=== PATIENT | female | born 1990 | race Asian ===

== ENCOUNTER 2016-11-20 10:04 | Emergency (ER) | payer OTHER ==
[~2016-11-20] VITALS: Ht 160 cm; Wt 58.1 kg
[~2016-11-20 10:04] MED LIST: PREN-29 PO
[2016-11-20 10:26] VITALS: Ht 160 cm; Wt 58.1 kg
[2016-11-20] MEDS ORDERED: AMO500 PO (11:37)
[2016-11-20] MEDS ORDERED: MED4DP PO (11:37)
[2016-11-20] MEDS ORDERED: LORA5TAB4 PO (11:38)
--- NOTE | 2016-11-20 11:42 | ERD ---
ER Documentation Chief Complaint Date/Time DATE: 11/20/16 TIME: 11:40 Chief Complaint RT EAR PAIN, SORE THROAT, MAILAISE X2 DAYS. HPI Patient is a 26-year-old female with no significant medical history presenting to the emergency department for worsening right ear pain and sore throat and losing her voice for the past 2 days. Additionally the patient reports sick contacts. The patient denies nausea, vomiting, diarrhea, fevers, or other symptoms at this time. ROS All systems reviewed and are negative except as per history of present illness. Medications Home Meds Active Scripts Loratadine* (Claritin*) 5 Mg Tab.rapdis, 5 MG PO DAILY, #30 TAB Prov:EMILY ZAMORA PA-C 11/20/16 Methylprednisolone* (Medrol* DOSE PACK) 4 Mg/Dose-Pack Tab.ds.pk, 4 MG PO . DIRECTED, #1 PACKET Prov:EMILY ZAMORA PA-C 11/20/16 Amoxicillin* (Amoxicillin*) 500 Mg Cap, 500 MG PO BID for 10 Days, #20 CAP Prov:EMILY ZAMORA PA-C 11/20/16 Reported Medications Vit-Fe Fumarate-FA* (Jermaine Tablet*) 1 Tab Tablet, 1 TAB PO AM , TAB 11/24/14 Allergies Allergies: Coded Allergies: No Known Drug Allergies (Unverified Allergy, Unknown, 11/24/14) PMhx/Soc Medical and Surgical Hx: pt denies Medical Hx, pt denies Surgical Hx Hx Alcohol Use: No Hx Substance Use: No Hx Tobacco Use: No Smoking Status: Never smoker FmHx Noncontributory for chief complaint Physical Exam Vitals Vital Signs Date Time Temp Pulse Resp B/P Pulse Ox O2 Delivery O2 Flow Rate FiO2 11/20/16 10:26 96.9 84 16 113/76 99 Physical Exam INITIAL VITAL SIGNS: Reviewed by me. GENERAL: Alert and interactive. No acute distress. HEAD: Head is normocephalic and atraumatic. EYES: EOMI. No scleral icterus. No conjunctival injection. ENT: The right tympanic membrane is erythematous but nonbulging. The left tympanic membrane is normal in appearance. The external auditory canals are nonerythematous with no obstruction bilaterally. There is no mastoid tenderness bilaterally. NECK: Supple. Full range of motion. RESPIRATORY: Normal respiratory effort. Clear breath sounds bilaterally. No wheezing, rales, or rhonchi. CV: Regular rate and rhythm. Normal S1 S2. No S3 or S4. No murmurs. ABDOMEN: Soft, non-distended, non-tender. No guarding. No rebound. No masses. EXTREMITIES: No deformity. SKIN: Warm and dry. NEUROLOGIC: Alert and oriented x 4. Speech is normal. Moves all extremities equally. No motor or sensory deficits noted. Procedures/MDM 26-year-old female presents secondary to complaints of right ear pain and sore throat and losing her voice. On physical examination the patient's vitals are within normal limits. Examination of the right tympanic membrane is erythematous which is concerning for otitis media. I have low suspicion for mastoiditis, retropharyngeal abscess, peritonsillar abscess, or other emergent conditions at this time. The patient will be given prescriptions for amoxicillin, Medrol Dosepak, and Claritin. The patient is stable for outpatient management. The patient agrees with the diagnosis and discharge plan. The patient was advised to return to the department immediately with any new or worsening symptoms. The patient demonstrates understanding of this information. All questions and concerns were addressed and the patient was hemodynamically stable prior to discharge. Departure Diagnosis: Primary Impression: Otitis media Otitis media type: other nonsuppurative Laterality: right Chronicity: acute Recurrence: not specified as recurrent Qualified Code: H65.191 - Other acute nonsuppurative otitis media of right ear, recurrence not specified Condition: Fair Patient Instructions: Otitis Media, Abx Tx (Adult) Referrals: [facility] YOU HAVE RECEIVED A MEDICAL SCREENING EXAM AND THE RESULTS INDICATE THAT YOU DO NOT HAVE A CONDITION THAT REQUIRES URGENT TREATMENT IN THE EMERGENCY DEPARTMENT. FURTHER EVALUATION AND TREATMENT OF YOUR CONDITION CAN WAIT UNTIL YOU ARE SEEN IN YOUR DOCTORS OFFICE WITHIN THE NEXT 1-2 DAYS. IT IS YOUR RESPONSIBILITY TO MAKE AN APPOINTMENT FOR FOLOW-UP CARE. IF YOU HAVE A PRIMARY DOCTOR --you should call your primary doctor and schedule an appointment IF YOU DO NOT HAVE A PRIMARY DOCTOR YOU CAN CALL OUR PHYSICIAN REFERRAL HOTLINE AT IF YOU CAN NOT AFFORD TO SEE A PHYSICIAN YOU CAN CHOSE FROM THE FOLLOWING [facility] [id number] [facility]. [facility] [address] [facility] [address] [facility] [address] [facility] [address] [facility] [address] [facility]. [facility] [address] Additional Instructions: Follow-up with your primary care physician within 1 week. Return to the emergency department immediately should you have any new or worsening symptoms, uncontrolled fevers, or other unexplained symptoms. Take all medications as directed. EMILY ZAMORA PA-C Nov 20, 2016 11:42
== END 2016-11-20 11:40 | disposition home or self-care (01) ==
LOC: FTE 10:04
DX: H65.191 Other acute nonsuppurative otitis media, right ear (principal)
CPT/HCPCS: 99284

== ENCOUNTER 2016-11-22 05:24 | Emergency (ER) | payer OTHER ==
[~2016-11-22] VITALS: Ht 154.9 cm; Wt 57.5 kg
[~2016-11-22 05:24] MED LIST changes: +AMO500 PO; +LORA5TAB4 PO; +MED4DP PO
[2016-11-22 05:38] VITALS: Ht 154.9 cm; Wt 57.5 kg
[2016-11-22] MEDS ORDERED: OFLO5DRO7 RIGHT EAR (06:17)
[2016-11-22] MEDS ORDERED: ACET500C5 PO (06:18)
--- NOTE | 2016-11-22 06:36 | ERD ---
ER Documentation Chief Complaint Date/Time DATE: 11/22/16 TIME: 06:33 Chief Complaint pt dx with r ear infection and tonight noticed drainage from r ear HPI Patient is a 26-year-old female who presents to the ED with right ear pain. She states that she was here yesterday and was treated for an ear infection. She has taken her amoxicillin however she states that she now has pain on the outside of her ear. She also noticed some drainage from her right ear. She denies hearing a pop. Denies difficulty hearing. Denies headache or dizziness. Denies fever or chills. Denies abdominal pain, nausea, vomiting or diarrhea. Denies blurry vision. No other complaints. ROS All systems reviewed and are negative except as per history of present illness. Medications Home Meds Active Scripts Acetaminophen* (Tylophen*) 500 Mg Capsule, 1 CAP PO Q6H Y for PAIN AND OR ELEVATED TEMP, #20 CAP Prov:CARLOS ROMAN PA-C 11/22/16 Ofloxacin Otic (Ofloxacin Otic) 5 Ml Drops, 5 DROP RIGHT EAR BID for 10 Days, # 1 BOTTLE Prov:CARLOS ROMAN PA-C 11/22/16 Loratadine* (Claritin*) 5 Mg Tab.rapdis, 5 MG PO DAILY, #30 TAB Prov:EMILY ZAMORA PA-C 11/20/16 Methylprednisolone* (Medrol* DOSE PACK) 4 Mg/Dose-Pack Tab.ds.pk, 4 MG PO . DIRECTED, #1 PACKET Prov:EMILY ZAMORA PA-C 11/20/16 Amoxicillin* (Amoxicillin*) 500 Mg Cap, 500 MG PO BID for 10 Days, #20 CAP Prov:EMILY ZAMORA PA-C 11/20/16 Reported Medications Vit-Fe Fumarate-FA* (Jermaine Tablet*) 1 Tab Tablet, 1 TAB PO AM , TAB 11/24/14 Allergies Allergies: Coded Allergies: No Known Drug Allergies (Unverified Allergy, Unknown, 11/24/14) PMhx/Soc History of Surgery: No Anesthesia Reaction: No Hx Neurological Disorder: No Hx Respiratory Disorders: No Hx Cardiac Disorders: No Hx Psychiatric Problems: No Hx Miscellaneous Medical Probl: No Hx Alcohol Use: No Hx Substance Use: No Hx Tobacco Use: No Physical Exam Vitals Vital Signs Date Time Temp Pulse Resp B/P Pulse Ox O2 Delivery O2 Flow Rate FiO2 11/22/16 05:38 97.6 88 20 115/76 100 Physical Exam GENERAL: Well-developed, well-nourished female. Appears in no acute distress. HEAD: Normocephalic, atraumatic. EYES: Pupils are equally reactive bilaterally. EOMs grossly intact. No conjunctival erythema. ENT: Moist mucous membranes. No uvula deviation. No kissing tonsils. No exudates. Right TM is erythematous. No mastoid tenderness. No blood or drainage seen on examination. Tenderness to pinna and tragus of right ear. Left ear is clear. NECK: Supple. No lymphadenopathy or thyromegaly. No meningismus. negative kernig. negative brudinski. LUNG: Clear to auscultation bilaterally. No rhonchi, wheezing, rales or coarse breath sounds. HEART: Regular rate and rhythm. No murmurs, rubs or gallops. SKIN: Normal color. Warm and dry. No rashes or lesions. Capillary refill < 2 seconds Procedures/MDM ER COURSE: I kept the patient and/or family informed of laboratory and diagnostic imaging results throughout the emergency room course. MEDICAL DECISION MAKING: This is a 26-year-old female who presents with right ear pain. Vital signs were reviewed. Patient is afebrile. Patient is not hypoxic. Patient is not toxic or ill-appearing. Patient has otitis externa of the right ear. In addition to acute otitis media of her right ear. Low suspicion for malignant otitis externa , TM perforation, mastoiditis. There are no signs of TM perforation. I will be prescribing her Corticosporin otic drops in addition for her to continue the amoxicillin as prescribed. DISCHARGE: At this time, patient is stable for discharge and outpatient management with no new complaints during the ER course. Patient was sent home with Corticosporin otic, Tylenol for pain.. Patient will be discharged home with instructions to recheck for new or worsening symptoms such as fever, nausea, weakness, LOC and to follow up with primary care in the next 1-2 days. Patient was advised to return to the ER for any new or worsening symptoms. Plan was discussed and patient and/or family understands and agrees. Home instructions were given. Departure Diagnosis: Primary Impression: Otitis externa Otitis externa type: unspecified type Laterality: right Chronicity: unspecified Qualified Code: H60.91 - Otitis externa of right ear, unspecified chronicity, unspecified type Additional Impression: Acute otitis media Otitis media type: unspecified Laterality: unspecified laterality Qualified Code: H66.90 - Acute otitis media, unspecified laterality, unspecified otitis media type Condition: Stable Patient Instructions: External Ear Infection (Adult) Additional Instructions: Call your primary care doctor TOMORROW for an appointment during the next 1-2 days.See the doctor sooner or return here if your condition worsens before your appointment time. CARLOS ROMAN PA-C Nov 22, 2016 06:36
== END 2016-11-22 06:50 | disposition home or self-care (01) ==
LOC: FTE 05:24
DX: H60.91 Unspecified otitis externa, right ear (principal); H66.91 Otitis media, unspecified, right ear; H92.01 Otalgia, right ear
CPT/HCPCS: 99283

== ENCOUNTER 2016-11-24 11:43 | Emergency (ER) | payer OTHER ==
[~2016-11-24] VITALS: Wt 60.0 kg
[~2016-11-24 11:43] MED LIST changes: +ACET500C5 PO; +OFLO5DRO7 RIGHT EAR
[2016-11-24] MEDS ORDERED: BACTDS PO (13:53)
[2016-11-24] MEDS ORDERED: IBUP-1542 PO (13:53)
--- NOTE | 2016-11-24 13:57 | ERD ---
ER Documentation Chief Complaint Date/Time DATE: 11/24/16 TIME: 13:55 Chief Complaint right ear pain for 1 week not better with abx HPI This 26-year-old female presents with right ear pain for last week. She was seen twice the first and prescribed amoxicillin the second time of Floxin drops. She complains of persistent pain and sensitivity to loud noises. She has some pain with movement of the external ear as well. She denies cough, fever congestion, bleeding or discharge ROS All systems reviewed and are negative except as per history of present illness. Medications Home Meds Active Scripts Ibuprofen* (Motrin*) 600 Mg Tab, 600 MG PO Q6, #15 TAB Prov:MARIA ESTHER ROSARIO MD 11/24/16 Sulfamethoxazole-Trimethoprim* (Bactrim* DS) 800-160 Mg Tab, 1 TAB PO BID for 7 Days, TAB Prov:MARIA ESTHER ROSARIO MD 11/24/16 Acetaminophen* (Tylophen*) 500 Mg Capsule, 1 CAP PO Q6H Y for PAIN AND OR ELEVATED TEMP, #20 CAP Prov:CARLOS ROMAN PA-C 11/22/16 Ofloxacin Otic (Ofloxacin Otic) 5 Ml Drops, 5 DROP RIGHT EAR BID for 10 Days, # 1 BOTTLE Prov:CARLOS ROMAN PA-C 11/22/16 Loratadine* (Claritin*) 5 Mg Tab.rapdis, 5 MG PO DAILY, #30 TAB Prov:EMILY ZAMORA PA-C 11/20/16 Methylprednisolone* (Medrol* DOSE PACK) 4 Mg/Dose-Pack Tab.ds.pk, 4 MG PO . DIRECTED, #1 PACKET Prov:EMILY ZAMORA PA-C 11/20/16 Amoxicillin* (Amoxicillin*) 500 Mg Cap, 500 MG PO BID for 10 Days, #20 CAP Prov:EMILY ZAMORA PA-C 11/20/16 Reported Medications Vit-Fe Fumarate-FA* (Jermaine Tablet*) 1 Tab Tablet, 1 TAB PO AM , TAB 11/24/14 Allergies Allergies: Coded Allergies: No Known Drug Allergies (Unverified Allergy, Unknown, 11/24/14) PMhx/Soc History of Surgery: No Anesthesia Reaction: No Hx Neurological Disorder: No Hx Respiratory Disorders: No Hx Cardiac Disorders: No Hx Psychiatric Problems: No Hx Miscellaneous Medical Probl: No Hx Alcohol Use: No Hx Substance Use: No Hx Tobacco Use: No Physical Exam Vitals Vital Signs Date Time Temp Pulse Resp B/P Pulse Ox O2 Delivery O2 Flow Rate FiO2 11/24/16 11:45 97.3 81 20 115/60 98 Physical Exam Const: [] Alert, not ill-appearing Head: Atraumatic Eyes: Normal Conjunctiva ENT: Normal External Ears, Nose and Mouth. Appears to be a small dried pustule superior aspect of the right external auditory canal. TM shows slight decrease light reflex but without significant redness. There is no mastoid tenderness or external or facial erythema or induration. Neck: Full range of motion..~ No meningismus. Resp: Clear to auscultation bilaterally Cardio: Regular rate and rhythm, no murmurs Abd: Soft, non tender, non distended. Normal bowel sounds Skin: No petechiae or rashes Back: No midline or flank tenderness Ext: No cyanosis, or edema Neur: Awake and alert Psych: Normal Mood and Affect Procedures/MDM Patient has signs and symptoms of what appears to be folliculitis of the external auditory canal. She will be administered prescription for Bactrim and they stopped the amoxicillin. Patient to continue Floxin drops and will give ibuprofen for pain. Patient was advised to see ENT for persistent symptoms despite treatment. She should otherwise return sooner for new or worsening symptoms. Departure Diagnosis: Primary Impression: Right ear pain Condition: Stable Patient Instructions: Folliculitis, External Ear Infection (Adult) Referrals: KATERINE BURTON MD, STEPHEN H MD Additional Instructions: Patient appears to be folliculitis of the ear canal. See ENT for persistent symptoms. MARIA ESTHER ROSARIO MD Nov 24, 2016 13:56
== END 2016-11-24 14:05 | disposition home or self-care (01) ==
LOC: FTE 11:43
DX: H92.01 Otalgia, right ear (principal)
CPT/HCPCS: 99283

== ENCOUNTER 2018-01-17 10:58 | Inpatient (IN) | END 2018-01-20 16:30 | disposition home or self-care (01) | DRG 766 ==